=== PATIENT | male | born 1970 | race African-American/Black ===

== ENCOUNTER 2016-10-28 06:43 | Emergency (ER) | payer BC ==
[2016-10-28] MEDS ORDERED: ENOXAPARIN 80 MG/0.8 ML SYR SUBQ ONE (10:01)
== END 2016-10-28 10:31 | disposition home or self-care (01) ==
LOC: ER 06:43
CPT/HCPCS: 36415; 70551; 71010; 80053; 80061; 82553; 82947; 84484; 85025; 85384; 85610; 85730; 93005; 96372

== ENCOUNTER 2016-11-09 22:18 | Emergency (ER) | payer BC | END 2016-11-10 00:35 | disposition home or self-care (01) | LOC: ER 22:18 | DX: R51 Headache (principal); Z79.899 Other long term (current) drug therapy; Z79.01 Long term (current) use of anticoagulants; Z86.73 Personal history of transient ischemic attack (TIA), and cerebral infarction without residual deficits; F41.1 Generalized anxiety disorder; I25.10 Atherosclerotic heart disease of native coronary artery without angina pectoris; I25.2 Old myocardial infarction; Z95.5 Presence of coronary angioplasty implant and graft | CPT/HCPCS: 36415; 70450; 80053; 85025; 85610; 85730 ==